=== PATIENT | male | born 1980 | race Caucasian/White ===

== ENCOUNTER 2017-11-09 14:29 | Emergency (ER) | payer OTHER ==
[2017-11-09 14:34] VITALS: BP 128/77; BMI 31.6
--- NOTE | 2017-11-10 03:54 | DR.GENAD ---
HPI - PCP Primary Care Physician: LUIS - Complaint/Symptoms Chief Complaint:: "I THINK I HAVE THE FLU" - Nurses notes reviewed Nurses Notes Review: Yes - Source History Provided: Patient - Timing Onset of Chief Complaint: 11/04/17 PMH - PMH Past Medical History: Yes Past Medical History: Hypertension Past Surgical History: No - Family History History of Family Medical Conditions: Yes Family Medical History: Diabetes Mellitus, Cancer, [place], Hypertension - Social History Does patient currently use any type of tobacco product: Yes Have you used tobacco products in the last 12 months: Yes Type of Tobacco Use: Cigars How many years tobacco product used: 10 Does any household member use tobacco: No Alcohol Use: None Do you use any recreational Drugs:: No Lives With: Family Lives Where: Home - infectious screening In the last 2 months have you had wt loss of >10#?: NO Have you had fever, night sweats or hemotysis?: No Have you traveled outside the country in the last 6 months?: No Isolation: Standard PE - Vital Signs Vitals: Temperature 97.4 F Pulse Rate 90 Respiratory Rate 18 Blood Pressure 128/77 O2 Sat by Pulse Oximetry 99 - Discharge Plan Disposition: 07 AGAINST MEDICAL ADVICE Condition: Stable - Follow ups/Referrals Follow ups/Referrals: DESIREE SMITH [Primary Care Provider] - 3 days - Instructions
== END 2017-11-09 15:05 | disposition left against medical advice (07) ==
LOC: ER 14:38
DX: R52 Pain, unspecified (principal)
CPT/HCPCS: 99281

== ENCOUNTER 2018-07-09 05:15 | Observation (INO) ==
[2018-07-09] MEDS ORDERED: DUONEB 0.5 MG/3 MG ONE ×2 (05:22→07:23)
[2018-07-09 05:30] VITALS: BMI 29.7
--- NOTE | 2018-07-09 05:40 | DR.SOBA ---
HPI Time Seen Time Seen by Provider: 07/09/18 05:25 Primary Care Physician Primary Care Physician: nfd Complaints Chief Complaint:: congestion, wheezing Reviewed Nurses Notes Reviewed: Yes Source History Provided: Patient Mode of Arrival Mode of Arrival: Ambulatory Timing Onset of Chief Complaint: 07/09/18 PMH PMH Past Medical History: Yes Past Medical History: Hypertension Past Surgical History: Yes Surgical History: Appendectomy Family History History of Family Medical Conditions: Yes Family Medical History: Diabetes Mellitus, Cancer, [place] and Hypertension Social History Does patient currently use any type of tobacco product: Yes Have you used tobacco products in the last 12 months: Yes Type of Tobacco Use: Cigars Does any household member use tobacco: No Alcohol Use: None Do you use any recreational Drugs:: No Lives With: Family Lives Where: Home infectious screening In the last 2 months have you had wt loss of >10#?: NO Have you had fever, night sweats or hemotysis?: No Have you traveled outside the country in the last 6 months?: No Isolation: Standard ROS Review of Systems Constitutional: No Symptoms Reported Eyes: No Symptoms Reported ENTM: No Symptoms Reported Respiratoy: Short of Breath and Wheezing Cardiovascular: No Symptoms Reported Gastrointestinal/Abdominal: No Symptoms Reported Genitourinary: No Symptoms Reported Neurological: No Symptoms Reported Musculoskeletal: No Symptoms Reported Integumentary: No Symptoms Reported Hematologic/Lymphatic: No Symptoms Reported Endocrine: No Symptoms Reported Psychiatric: No Symptoms Reported All Other Systems: Reviewed and Negative PE Vital Signs Vitals: Temperature 99.3 F Pulse Rate 111 Respiratory Rate 32 Blood Pressure 153/84 O2 Sat by Pulse Oximetry 97 General Limitations: No Limitations General Appearance: Alert and In Distress Head Head Exam: Normal Inspection and Atraumatic Eyes Eye exam: Normal Appearance and PERRL ENT ENT Exam: Normal Oropharynx, Mucous Membranes Moist and Other (nares are wet with clear rhinorrhea on the right.) Neck Neck Exam: Normal Inspection and Full ROM Chest Chest Inspection: Normal Inspection and Symmetric Chest Wall Rise Respiratory Respiratory Exam: Bilateral: Wheezing, Bilateral: Rhonchi and Bilateral: Decreased Breath Sounds Cardiovascular Cardiovascular Exam: Regular Rate, Normal Rhythm, +S1 and +S2 Abdominal Exam Abdominal Exam: Normal Inspection, Normal Bowel Sounds and Soft Extremities Extremities Exam: Normal Inspection and Full ROM Back Back Exam: Normal Inspection Neurologic Neurological Exam: Alert and Oriented X3 Psychiatric Psychiatric Exam: Normal Affect and Normal Mood Skin Skin Exam: Warm and Dry ROR Labs Reviewed Laboratory Results Reviewed?: Yes Result Diagrams: 07/09/18 05:32 07/09/18 05:32 Laboratory: WBC 5.9 X10^3/uL (3.6-10.0) 07/09/18 05:32 RBC 5.11 X10^6/uL (4.7-6.0) 07/09/18 05:32 Hgb 15.3 g/dL (13.5-18.0) 07/09/18 05:32 Hct 43.2 % (42.0-54.0) 07/09/18 05:32 MCV 84.4 fL (80.0-100.0) 07/09/18 05:32 MCH 29.9 pg (27.0-34.0) 07/09/18 05:32 MCHC 35.5 g/dL (33.0-35.0) H 07/09/18 05:32 RDW 13.5 % (11.6-16.5) 07/09/18 05:32 Plt Count 179 X10^3/uL (150.0-450.0) 07/09/18 05:32 MPV 7.9 fL (7.4-11.0) 07/09/18 05:32 Neut % (Auto) 61.5 % (42.0-75.0) 07/09/18 05:32 Lymph % (Auto) 15.2 % (21.0-51.0) L 07/09/18 05:32 [place] % (Auto) 8.2 % (0.0-13.0) 07/09/18 05:32 Eos % (Auto) 14.7 % (0.9-2.9) H 07/09/18 05:32 Baso % (Auto) 0.4 % (0.2-1.0) 07/09/18 05:32 Neut # (Auto) 3.6 x10^3/uL (2.2-4.8) 07/09/18 05:32 Lymph # (Auto) 0.9 X10^3/uL (1.3-2.9) L 07/09/18 05:32 [place] # (Auto) 0.5 x10^3/uL (0.3-0.8) 07/09/18 05:32 Eos # (Auto) 0.9 x10^3/uL (0.0-0.2) H 07/09/18 05:32 Baso # (Auto) 0.0 X10^3/uL (0.0-0.1) 07/09/18 05:32 Absolute Nucleated RBC 0.2 /100WBC 07/09/18 05:32 INR Target Range - 07/09/18 05:32 INR 1.13 (0.8-1.3) 07/09/18 05:32 APTT 31.2 SECONDS (22.9-36.5) 07/09/18 05:32 PTT Comment - 07/09/18 05:32 Sample Site Right radial 07/09/18 05:37 ABG pH 7.440 (7.35-7.45) 07/09/18 05:37 ABG pCO2 35.0 mmHg (35.0-45.0) 07/09/18 05:37 ABG pO2 80.0 mmHg (80.0-100.0) 07/09/18 05:37 ABG HCO3 23.8 mmol/L (22-26) 07/09/18 05:37 ABG O2 Saturation 96.0 % (90-100) 07/09/18 05:37 ABG Base Excess 0.0 mmol/L (-2.0-2.0) 07/09/18 05:37 David Test Pos 07/09/18 05:37 A-a Gradient 26.0 mmHg 07/09/18 05:37 FiO2 21.000 07/09/18 05:37 Blood Gas Comments Vaibhav well jts 07/09/18 05:37 XRAY XRAY Interpreted by: Self XRAY Findings: normal CXR EKG Rate: 105 [place]: Normal Rhythm: ST Block: None Hypertrophy: None ST: Normal
[2018-07-09 05:47] LABS: ABG HCO3 23.8 mmol/L (22-26)
[2018-07-09 05:48] LABS: ABG ALLEN TEST POS
[2018-07-09 05:57] LABS: BASOPHILS % (AUTO) 0.4 % (0.2-1.0); EOSINOPHILS # (AUTO) 0.9 x10^3/uL (0.0-0.2); EOSINOPHILS % (AUTO) 14.7 % (0.9-2.9); HEMATOCRIT 43.2 % (42.0-54.0); HEMOGLOBIN 15.3 g/dL (13.5-18.0); LYMPHOCYTES # (AUTO) 0.9 X10^3/uL (1.3-2.9); LYMPHOCYTES % (AUTO) 15.2 % (21.0-51.0); MEAN CORPUSCULAR HEMOGLOBIN 29.9 pg (27.0-34.0); MEAN CORPUSCULAR HGB CONC 35.5 g/dL (33.0-35.0); MEAN CORPUSCULAR VOLUME 84.4 fL (80.0-100.0); MEAN PLATELET VOLUME 7.9 fL (7.4-11.0); MONOCYTES # (AUTO) 0.5 x10^3/uL (0.3-0.8); MONOCYTES % (AUTO) 8.2 % (0.0-13.0); NEUTROPHILS # (AUTO) 3.6 x10^3/uL (2.2-4.8); NEUTROPHILS % (AUTO) 61.5 % (42.0-75.0); PLATELET COUNT 179 X10^3/uL (150.0-450.0); RED BLOOD COUNT 5.11 X10^6/uL (4.7-6.0); RED CELL DISTRIBUTION WIDTH 13.5 % (11.6-16.5); WHITE BLOOD COUNT 5.9 X10^3/uL (3.6-10.0)
--- NOTE | 2018-07-09 06:03 | RAD ---
Chest, one view Indication: Shortness of breath Comparison: 08/27/2016 Findings: Cardiac silhouette is unremarkable. The lungs are clear without focal infiltrates or significant pleu ral effusion. Impression: No acute chest process. Reported By:
[2018-07-09] MEDS ORDERED: SOLU-Medrol 125 MG VIAL IVP ONE (06:05)
[2018-07-09] MEDS ORDERED: SINGULAIR TAB 10 MG PO ONE (06:07)
[2018-07-09] MEDS ORDERED: NS 1000 ML 1,000 ML IV ONE (06:08)
[2018-07-09] MEDS ORDERED: DUONEB 0.5 MG/3 MG NEB ONE ×2 (06:10→07:26)
[2018-07-09] MEDS ORDERED: SOLU-Medrol 125 MG VIAL ONE (06:10)
[2018-07-09] MEDS ORDERED: NS 1000 ML 1,000 ML ONE (06:11)
[2018-07-09 06:12] LABS: BLOOD UREA NITROGEN 10 mg/dL (7-18); CALCIUM 8.4 mg/dL (8.5-10.1); CARBON DIOXIDE 28.7 mmol/L (21-32); CHLORIDE 102 mmol/L (98-107); CREATININE 1.12 mg/dL (0.70-1.30); SODIUM 137 mmol/L (136-145); TROPONIN I < 0.02 ng/mL (0-1.5); eGFR NON BLACK RACES > 60 (>60)
[2018-07-09] MEDS ORDERED: ROCEPHIN 1 GRAM IV PREMIX 1 G/50 ML IV.SOLN. IV ONE (06:13)
[2018-07-09 06:16] LABS: B-TYPE NATRIURETIC PEPTIDE 23.2 pg/mL (0-79)
[2018-07-09] MEDS ORDERED: ROCEPHIN VIAL 1 GRAM ONE (06:16)
[2018-07-09 06:17] LABS: ALANINE AMINOTRANSFERASE 27 Units/L (12-78); ALBUMIN 3.7 g/dL (3.4-5.0); ALKALINE PHOSPHATASE 81 Units/L (46-116); ASPARTATE AMINO TRANSFERASE 18 Units/L (15-37); CKMB % 1.5 % (<4); CREATINE KINASE 103 Units/L (39-308); CREATINE KINASE MB 1.5 ng/mL (0-4.0); MAGNESIUM 1.7 mg/dL (1.7-2.9); TOTAL PROTEIN 7.1 g/dL (6.4-8.2)
[2018-07-09] MEDS ORDERED: NS 100 ML IV + SPIKE MINIBAG* 100 ML IV ONE (06:17)
[2018-07-09] MEDS ORDERED: ZITHROMAX INJ 500 MG VIAL 500 MG in NS 250 ML IV 250 ML IV SCH (07:00)
[2018-07-09] MEDS ORDERED: NS 250 ML IV 250 ML IV ONE (07:04)
[2018-07-09] MEDS ORDERED: ZITHROMAX INJ 500 MG VIAL IV ONE (07:04)
[2018-07-09] MEDS: NS 1000 ML 1,000 ML IV SCH ×3 (10:06→16:31)
[2018-07-09] MEDS: DUONEB 0.5 MG/3 MG NEB SCH ×4 (10:12→20:50)
[2018-07-09] MEDS ORDERED: DUONEB 0.5 MG/3 MG NEB SCH (12:00)
[2018-07-09] MEDS: SOLU-Medrol 40 MG VIAL IVP SCH ×2 (13:25→21:18)
[2018-07-09] MEDS ORDERED: SOLU-Medrol 40 MG VIAL IVP SCH (14:00)
[2018-07-09] MEDS: NICOTINE PATCH TD SCH (16:16)
[2018-07-09] MEDS ORDERED: ROCEPHIN 1 GRAM IV PREMIX 1 G/50 ML IV.SOLN. IV SCH (17:00)
[2018-07-09] MEDS ORDERED: ROBITUSSIN DM PO PRN (18:11)
[2018-07-09] MEDS ORDERED: ENALAPRIL MALEATE 10 MG PO SCH (18:15)
--- NOTE | 2018-07-09 18:15 | DR.H&P ---
H&P - History & Physical for Day of: H&P Date: 07/09/18 - Chief Complaint Chief Complaint: SOB, CCC, WHEEZING - History of Present Illness History of Present Illness: 37 WM ER ADMISSION AFTER PRESENTING WITH CO CCC, FEVER, WHEEZING AND SUDDEN ONSENT OF SOB. PT DENIES ANY HX OF ASTHMA. PT STATES HIS FAMILY, GIRLFRIEND AND DAUGHTER WERE SICK WITH SAME SYMPTOMS EARILER IN WEEK BUT IMPROVED. PT STATES HE A SUDDEN INCREASED SOB, FELT VERY TIGHT IN CHEST "COULDNT CATCH MY BREATH". PT WAS NOTED TO HAVE INSPIRATORY WHEEZES ON PRESENTATION TO ED. PT HAS PMH OF HTN. PT ADMITTED FOR TREATMENT OF ACUTE RESP ILLNESS - Past Medical History Past Medical History: Hypertension - Past Surgical History Surgical History: Appendectomy - Family History Family Medical History: Diabetes Mellitus, Cancer, [place], Hypertension - Social History Does patient currently use any type of tobacco product: Yes Have you used tobacco products in the last 12 months: Yes Type of Tobacco Use: Cigars Does any household member use tobacco: No Alcohol Use: None - Medications Home Medications: No Known Drug Allergies Allergy (Verified 07/09/18 05:22) - Review of Systems Constitutional: Weakness Eyes: No Symptoms Reported ENT: Nose Discharge, Nose Congestion, Throat Pain Respiratory: Cough, Shortness of Breath, Pleuritic Pain, Wheezing Cardiovascular: No Symptoms Reported. denies: Edema Gastrointestinal: Nausea Genitourinary: No Symptoms Reported Musculoskeletal: No Symptoms Reported Skin: No Symptoms Reported Neurological: No Symptoms Reported - Physical Exam Vital Signs: Temperature 97.8 F Pulse Rate [Right Radial] 102 Pulse Rate 111 Respiratory Rate 20 Blood Pressure [Right Arm] 120/64 Blood Pressure 153/84 O2 Sat by Pulse Oximetry 95 Oriented: Normal Eyes: Normal Ear: Normal Nose: Discharge Throat: Red Respiratory: Wheezes Throughout, RLL Diminished, LLL Diminished Cardiovascular: Tachycardia. negative: Edema : Normal Auscultation: Bowel Sounds: Normal Palpation: Normal Tenderness: Normal Skin: Normal Musculoskeletal: Normal Psychiatric: Normal Mood Description: Anxious Affect: Anxious Speech Pattern: Clear, Appropriate - Assessment/Plan (1) SOB (shortness of breath) Status: Acute Plan: ADMIT, RESP THERAPY, IV ATBX. SPUTUM CULTURE, JET NEBS. SUPPLEMENTAL O2 , CARDIAC ENZYMES. CXR ON ADMISSION. VERIFY HOME MEDS, BP CONTROL. IV STEROIDS, FLU SWAB (2) Acute bronchitis Status: Acute (3) HTN (hypertension), benign Status: Acute - Allergies Allergies/Adverse Reactions: Allergies Allergy/AdvReac Type Severity Reaction Status Date / Time No Known Drug Allergies Allergy Verified 07/09/18 05:22
[2018-07-09] MEDS: NEURONTIN CAP 300 MG PO SCH (21:19)
[2018-07-09] MEDS: TYLENOL 325 MG TAB PO PRN (21:23)
[2018-07-10] MEDS: DUONEB 0.5 MG/3 MG NEB SCH ×6 (01:43→21:02)
[2018-07-10] MEDS: NS 1000 ML 1,000 ML IV SCH ×3 (01:51→17:00)
[2018-07-10] MEDS: SOLU-Medrol 40 MG VIAL IVP SCH ×3 (05:23→21:04)
[2018-07-10 06:35] LABS: BASOPHILS % (AUTO) 0.1 % (0.2-1.0); HEMATOCRIT 39.4 % (42.0-54.0); HEMOGLOBIN 13.6 g/dL (13.5-18.0); LYMPHOCYTES # (AUTO) 0.9 X10^3/uL (1.3-2.9); LYMPHOCYTES % (AUTO) 6.3 % (21.0-51.0); MEAN CORPUSCULAR HEMOGLOBIN 29.6 pg (27.0-34.0); MEAN CORPUSCULAR HGB CONC 34.6 g/dL (33.0-35.0); MEAN CORPUSCULAR VOLUME 85.6 fL (80.0-100.0); MEAN PLATELET VOLUME 8.4 fL (7.4-11.0); MONOCYTES # (AUTO) 0.6 x10^3/uL (0.3-0.8); MONOCYTES % (AUTO) 4.1 % (0.0-13.0); NEUTROPHILS # (AUTO) 12.8 x10^3/uL (2.2-4.8); NEUTROPHILS % (AUTO) 89.5 % (42.0-75.0); PLATELET COUNT 205 X10^3/uL (150.0-450.0); RED BLOOD COUNT 4.61 X10^6/uL (4.7-6.0); RED CELL DISTRIBUTION WIDTH 13.5 % (11.6-16.5); WHITE BLOOD COUNT 14.3 X10^3/uL (3.6-10.0)
[2018-07-10 07:12] LABS: BLOOD UREA NITROGEN 11 mg/dL (7-18); CALCIUM 8.3 mg/dL (8.5-10.1); CARBON DIOXIDE 23.3 mmol/L (21-32); CHLORIDE 106 mmol/L (98-107); COR NA(FOR HYPERGLY) 141 mmol/L (136-145); CREATININE 1.04 mg/dL (0.70-1.30); SODIUM 138 mmol/L (136-145); eGFR NON BLACK RACES > 60 (>60)
[2018-07-10 07:52] LABS: BAND NEUTROPHILS % 3 % (0-10)
[2018-07-10 07:53] LABS: PLATELET MORPHOLOGY COMMENT NORMAL (NORMAL)
--- NOTE | 2018-07-10 08:15 | RAD ---
Examination: Chest, PA and lateral views History: COPD Comparison reference 07/09/2018 Findings: Continued normal heart size with clear lungs and pleural spaces. Impression: No change; no acute abnormality. Reported By:
[2018-07-10] MEDS: VASOTEC TAB 10 MG PO SCH (08:35)
[2018-07-10] MEDS: NICOTINE PATCH TD SCH (08:35)
[2018-07-10] MEDS: ROCEPHIN VIAL 1 GRAM 1 G in NS 100 ML IV + SPIKE MINIBAG* 100 ML IV SCH (08:36)
[2018-07-10] MEDS: NORTRIPTYLINE 25 MG PO SCH (08:39)
[2018-07-10] MEDS: ZITHROMAX INJ 500 MG VIAL 500 MG in NS 250 ML IV 250 ML IV SCH (09:43)
[2018-07-10] MEDS: NEURONTIN CAP 300 MG PO SCH (20:01)
[2018-07-10] MEDS: TYLENOL 325 MG TAB PO PRN (20:02)
[2018-07-11] MEDS: DUONEB 0.5 MG/3 MG NEB SCH ×4 (01:04→12:11)
[2018-07-11] MEDS: SOLU-Medrol 40 MG VIAL IVP SCH (05:37)
[2018-07-11 06:47] LABS: ALANINE AMINOTRANSFERASE 22 Units/L (12-78); ALBUMIN 3.4 g/dL (3.4-5.0); ALKALINE PHOSPHATASE 79 Units/L (46-116); ASPARTATE AMINO TRANSFERASE 10 Units/L (15-37); BLOOD UREA NITROGEN 13 mg/dL (7-18); CALCIUM 8.5 mg/dL (8.5-10.1); CARBON DIOXIDE 25.2 mmol/L (21-32); CHLORIDE 105 mmol/L (98-107); COR NA(FOR HYPERGLY) 144 mmol/L (136-145); SODIUM 139 mmol/L (136-145); TOTAL PROTEIN 6.8 g/dL (6.4-8.2); eGFR NON BLACK RACES > 60 (>60)
[2018-07-11 07:15] LABS: BASOPHILS % (AUTO) 0.1 % (0.2-1.0); HEMATOCRIT 38.5 % (42.0-54.0); HEMOGLOBIN 13.4 g/dL (13.5-18.0); LYMPHOCYTES # (AUTO) 1.1 X10^3/uL (1.3-2.9); LYMPHOCYTES % (AUTO) 7.1 % (21.0-51.0); MEAN CORPUSCULAR HGB CONC 34.7 g/dL (33.0-35.0); MEAN CORPUSCULAR VOLUME 86.4 fL (80.0-100.0); MEAN PLATELET VOLUME 8.5 fL (7.4-11.0); MONOCYTES # (AUTO) 0.8 x10^3/uL (0.3-0.8); MONOCYTES % (AUTO) 5.3 % (0.0-13.0); NEUTROPHILS # (AUTO) 13.4 x10^3/uL (2.2-4.8); NEUTROPHILS % (AUTO) 87.5 % (42.0-75.0); PLATELET COUNT 247 X10^3/uL (150.0-450.0); RED BLOOD COUNT 4.46 X10^6/uL (4.7-6.0); RED CELL DISTRIBUTION WIDTH 13.8 % (11.6-16.5); WHITE BLOOD COUNT 15.3 X10^3/uL (3.6-10.0)
[2018-07-11] MEDS: ROCEPHIN VIAL 1 GRAM 1 G in NS 100 ML IV + SPIKE MINIBAG* 100 ML IV SCH (10:08)
[2018-07-11] MEDS: NICOTINE PATCH TD SCH (10:09)
[2018-07-11] MEDS: VASOTEC TAB 10 MG PO SCH (10:10)
[2018-07-11] MEDS: NORTRIPTYLINE 25 MG PO SCH (10:13)
[2018-07-11] MEDS: ZITHROMAX INJ 500 MG VIAL 500 MG in NS 250 ML IV 250 ML IV SCH (11:32)
[2018-07-11] MEDS: NS 1000 ML 1,000 ML IV SCH (11:32)
[2018-07-11 12:53] VITALS: BP 138/69
--- NOTE | 2018-07-11 14:28 | PCM.PROG ---
Progress Note - Progress Note for Day of Date of Exam: 07/10/18 - Subjective Subjective: 37 WM ER ADMISSION ON 07/09 WITH ACUTE BRONCHITIS. PT HAD BEEN ON IV ATBX, IV STEROIDS AND AGRESSIVE RESP THERAPY WITH REPORTS OF IMPROVING SOB AND CONTINUES WITH COUGHING EPISODES AND WHEEZES. REVIEWED XRAY AND LABS WITH PT, WILL CONTINUE CURRENT PLAN AND REPEAT AM LABS. - Past Medical Family Social History Allergies: Allergies No Known Drug Allergies Allergy (Verified 07/09/18 05:22) - Review of Systems ROS: No change since H&P - Vital Signs and I&O's Vital Signs: Temperature 97.4 F Pulse Rate [Right Radial] 120 Pulse Rate 102 Respiratory Rate 20 Blood Pressure [Right Arm] 138/69 Blood Pressure 153/84 O2 Sat by Pulse Oximetry 98 Intake and Output: Intake & Output 07/09/18 07/10/18 07/11/18 07/12/18 11:59 11:59 11:59 11:59 Intake Total 1960 / 1960 3309 / 3309 Output Total 2700 / 2700 1400 / 1400 Balance -740 / -740 1909 / 1909 - Physical Exam Oriented: Normal Eyes: Normal Ear: Normal Nose: Discharge Throat: Red Respiratory: Diminished, Wheezes, Rhonchi Cardiovascular: Tachycardia. negative: Edema : Normal Auscultation: Bowel Sounds: Normal Tenderness: Normal Skin: Normal Musculoskeletal: Normal Psychiatric: Normal Mood Description: Anxious Affect: Anxious Speech Pattern: Clear, Appropriate - Laboratory and Diagnostics Result Diagrams: 07/11/18 04:56 07/11/18 04:56 Labs: 07/09/18 08:40 Sputum - Expectorated Sputum Sputum Culture - Final 07/09/18 08:40 Sputum - Expectorated Sputum - Final 07/09/18 05:38 Blood Blood Culture - Preliminary 07/09/18 05:32 Blood Blood Culture - Preliminary Laboratory WBC 15.3 X10^3/uL (3.6-10.0) H 07/11/18 04:56 RBC 4.46 X10^6/uL (4.7-6.0) L 07/11/18 04:56 Hgb 13.4 g/dL (13.5-18.0) L 07/11/18 04:56 Hct 38.5 % (42.0-54.0) L 07/11/18 04:56 MCV 86.4 fL (80.0-100.0) 07/11/18 04:56 MCH 30.0 pg (27.0-34.0) 07/11/18 04:56 MCHC 34.7 g/dL (33.0-35.0) 07/11/18 04:56 RDW 13.8 % (11.6-16.5) 07/11/18 04:56 Plt Count 247 X10^3/uL (150.0-450.0) 07/11/18 04:56 Plt Count Comment Adequate (ADEQUATE) 07/10/18 07:22 MPV 8.5 fL (7.4-11.0) 07/11/18 04:56 Neut % (Auto) 87.5 % (42.0-75.0) H 07/11/18 04:56 Lymph % (Auto) 7.1 % (21.0-51.0) L 07/11/18 04:56 [place] % (Auto) 5.3 % (0.0-13.0) 07/11/18 04:56 Eos % (Auto) 0.0 % (0.9-2.9) L 07/11/18 04:56 Baso % (Auto) 0.1 % (0.2-1.0) L 07/11/18 04:56 Neut # (Auto) 13.4 x10^3/uL (2.2-4.8) H 07/11/18 04:56 Lymph # (Auto) 1.1 X10^3/uL (1.3-2.9) L 07/11/18 04:56 [place] # (Auto) 0.8 x10^3/uL (0.3-0.8) 07/11/18 04:56 Eos # (Auto) 0.0 x10^3/uL (0.0-0.2) 07/11/18 04:56 Baso # (Auto) 0.0 X10^3/uL (0.0-0.1) 07/11/18 04:56 Absolute Nucleated RBC 0.0 /100WBC 07/11/18 04:56 Total Counted 100 07/10/18 07:22 Neutrophils % (Manual) 85 % (39-76) H 07/10/18 07:22 Band Neutrophils % 3 % (0-10) 07/10/18 07:22 Lymphocytes % (Manual) 8 % (13-43) L 07/10/18 07:22 Monocytes % (Manual) 4 % (4-9) 07/10/18 07:22 Plt Morphology Comment Normal (NORMAL) 07/10/18 07:22 RBC Morphology Normal (NORMAL) 07/10/18 07:22 INR Target Range - 07/09/18 05:32 INR 1.13 (0.8-1.3) 07/09/18 05:32 APTT 31.2 SECONDS (22.9-36.5) 07/09/18 05:32 PTT Comment - 07/09/18 05:32 D-Dimer 111 ng/mL (0-400) 07/09/18 05:32 Sample Site Right radial 07/09/18 05:37 ABG pH 7.440 (7.35-7.45) 07/09/18 05:37 ABG pCO2 35.0 mmHg (35.0-45.0) 07/09/18 05:37 ABG pO2 80.0 mmHg (80.0-100.0) 07/09/18 05:37 ABG HCO3 23.8 mmol/L (22-26) 07/09/18 05:37 ABG O2 Saturation 96.0 % (90-100) 07/09/18 05:37 ABG Base Excess 0.0 mmol/L (-2.0-2.0) 07/09/18 05:37 David Test Pos 07/09/18 05:37 A-a Gradient 26.0 mmHg 07/09/18 05:37 FiO2 21.000 07/09/18 05:37 Blood Gas Comments Vaibhav well jts 07/09/18 05:37 Sodium 139 mmol/L (136-145) 07/11/18 04:56 Corrected Sodium 144 mmol/L (136-145) 07/11/18 04:56 Potassium 4.5 mmol/L (3.5-5.1) 07/11/18 04:56 Chloride 105 mmol/L (98-107) 07/11/18 04:56 Carbon Dioxide 25.2 mmol/L (21-32) 07/11/18 04:56 BUN 13 mg/dL (7-18) 07/11/18 04:56 Creatinine 1.10 mg/dL (0.70-1.30) 07/11/18 04:56 Est GFR (MDRD) Af Amer > 60 (>60) 07/11/18 04:56 Est GFR (MDRD) Non-Af > 60 (>60) 07/11/18 04:56 Glucose 305 mg/dL (65-99) H 07/11/18 04:56 Lactic Acid 1.2 mmol/L (0.4-2.0) 07/09/18 05:32 Calcium 8.5 mg/dL (8.5-10.1) 07/11/18 04:56 Corrected Calcium TNP 07/11/18 04:56 Magnesium 1.7 mg/dL (1.7-2.9) 07/09/18 05:32 Total Bilirubin 0.20 mg/dL (0.2-1.0) 07/11/18 04:56 AST 10 Units/L (15-37) L 07/11/18 04:56 ALT 22 Units/L (12-78) 07/11/18 04:56 Alkaline Phosphatase 79 Units/L (46-116) 07/11/18 04:56 Creatine Kinase 103 Units/L (39-308) 07/09/18 05:32 CK-MB (CK-2) 1.5 ng/mL (0-4.0) 07/09/18 05:32 CK/CKMB % Calc 1.5 % (<4) 07/09/18 05:32 Troponin I < 0.02 ng/mL (0-1.5) 07/09/18 05:32 B-Natriuretic Peptide 23.2 pg/mL (0-79) 07/09/18 05:32 Total Protein 6.8 g/dL (6.4-8.2) 07/11/18 04:56 Albumin 3.4 g/dL (3.4-5.0) 07/11/18 04:56 Globulin 3.4 g/dL (2.5-4.5) 07/11/18 04:56 Albumin/Globulin Ratio 1.0 Ratio (1.1-2.1) L 07/11/18 04:56 Influenza Type A (PCR) Negative (NEGATIVE) 07/09/18 09:50 Influenza Type B (PCR) Negative (NEGATIVE) 07/09/18 09:50 - Plan (1) SOB (shortness of breath) Status: Acute Plan: RESP THERAPY, IV ATBX. SPUTUM CULTURE ON ADMISSION, JET NEBS. SUPPLEMENTAL O2, CARDIAC ENZYMES WNL ON ADMISSION. VERIFY HOME MEDS, BP CONTROL. IV STEROIDS, FLU SWAB NEGATIVE (2) Acute bronchitis Status: Acute (3) HTN (hypertension), benign Status: Acute
== END 2018-07-11 13:22 | disposition home or self-care (01) ==
LOC: MED/SURG 05:16 → ER 05:16 → MED/SURG 09:05
PROVIDERS: ADMIT Internal Medicine; ATTEND Internal Medicine
DX: J20.8 Acute bronchitis due to other specified organisms; D72.828 Other elevated white blood cell count; Z79.899 Other long term (current) drug therapy; Z72.0 Tobacco use; R06.02 Shortness of breath; I10 Essential (primary) hypertension; R94.31 Abnormal electrocardiogram [ECG] [EKG]; R50.9 Fever, unspecified
CPT/HCPCS: 36415; 36600; 71010; 71020; 71045; 71046; 80048; 80053; 82550; 82553; 82803; 83605; 83735; 83880; 84484; 85025; 85378; 85610; 85730; 87040; 87070; 87205; 87502; 93005; 93010; 94640; 94760; 96365; 96374; 96375; 99217; 99218; 99283; 99284; A4222; G0378; J0456; J0696; J2920; J2930; J3490; J7030; J7050; J7620